=== PATIENT | male | born 1960 | race Caucasian/White ===

== ENCOUNTER 2018-12-07 14:59 | Observation (INO) | payer BC, OTHER ==
[2018-12-07 15:30] VITALS: BMI 31.9
--- NOTE | 2018-12-07 17:48 | CT ---
Date of service: 12/07/2018 PROCEDURE: CT HEAD WITHOUT CONTRAST. HISTORY: r/o ICH and fx COMPARISON: None available. TECHNIQUE: Axial computed tomography images were obtained through the head/brain without intravenous contrast. Radiation dose: Total exam DLP = 893.72 mGy-cm. This CT exam was performed using one or more of the following dose reduction techniques: Automated exposure control, adjustment of the mA and/or kV according to patient size, and/or use of iterative reconstruction technique. FINDINGS: HEMORRHAGE: Small subtle hyperdense focus in the high right frontal lobe (series 4, image 44), appearance suspicious for subarachnoid hemorrhage. Recommend 4-[address] follow-up to assess for stability/resolution. BRAIN: No mass effect or edema. The gamboa-white matter differentiation appears intact. Please note that MRI with diffusion imaging is more sensitive in the detection of acute ischemic event. VENTRICLES: No hydrocephalus. CALVARIUM: Unremarkable. PARANASAL SINUSES: Unremarkable as visualized. No significant inflammatory changes. MASTOID AIR CELLS: Unremarkable as visualized. No inflammatory changes. OTHER FINDINGS: None. IMPRESSION: Small subtle hyperdense focus in the high right frontal lobe; appearance suspicious for subarachnoid hemorrhage. Recommend 4-[address] follow-up to assess for stability/resolution. Discussed with Dr. Buck on 12/07/18 at 5:41 p.m.
--- NOTE | 2018-12-07 18:24 | CT ---
Date of service: 12/07/2018 PROCEDURE: CT Cervical Spine without contrast HISTORY: r/o fx COMPARISON: None available. TECHNIQUE: Axial computed tomography images were obtained of the cervical spine without the use of intravenous contrast. Coronal and sagittal reformatted images were created and reviewed. Radiation dose: Total exam DLP = 591.67 mGy-cm. This CT exam was performed using one or more of the following dose reduction techniques: Automated exposure control, adjustment of the mA and/or kV according to patient size, and/or use of iterative reconstruction technique. FINDINGS: VERTEBRAE: No fracture. Normal alignment. No destructive bony lesion. DISCS/SPINAL CANAL/NEURAL FORAMINA: Osteophyte posterior disc bulge noted at C5-C6 and C6-C7 associated with mild spinal and neural foraminal narrowing.. Narrowing of the intervertebral disc is space at C5-C6 and C6-C7. The PARASPINAL SOFT TISSUES: Unremarkable. OTHER FINDINGS: None. IMPRESSION: No evidence of acute fracture or subluxation. Degenerative changes. Straightening of the cervical spine which could be due to muscle spasm.
[2018-12-07 18:52] LABS: BASO # 0.05 K/mm3 (0.0-2.0); BASO % 0.6 % (0.0-3.0); EOS # 0.1 (0.0-0.7); EOS % 0.9 % (1.5-5.0); HEMOGLOBIN 15.2 g/dL (14.0-18.0); LYMPH # 2.6 (1.2-3.4); LYMPH % 29.1 % (22.0-35.0); MEAN CORPUSCULAR HEMOGLOBIN 31.5 pg (25.0-35.0); MEAN PLATELET VOLUME 10.1 fl (7.0-11.0); MONO # 0.5 (0.1-0.6); MONO % 5.8 % (1.0-6.0); RBC 4.82 10^6/uL (3.5-6.1); RED CELL DISTRIBUTION WIDTH 13.1 % (11.5-14.5)
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
[2018-12-07 19:03] LABS: INR 1.05; PARTIAL THROMBOPLASTIN TIME 31.2 Seconds (26.9-38.3); PROTHROMBIN TIME 11.6 SECONDS (9.4-12.5)
--- NOTE | 2018-12-07 19:03 | RAD ---
HISTORY: r/o infiltrate COMPARISON: None available. TECHNIQUE: Chest PA and lateral, 2 views FINDINGS: Examination limited by habitus and hypoinflation. LUNGS: No focal consolidation. Please note that chest x-ray has limited sensitivity for the detection of pulmonary masses. PLEURA: No significant pleural effusion identified. No definite pneumothorax . CARDIOVASCULAR: The cardiomediastinal silhouette appears within normal limits of size. Faint atherosclerotic calcification present. OSSEOUS STRUCTURES: Degenerative changes. VISUALIZED UPPER ABDOMEN: Elevation of the right hemidiaphragm. OTHER FINDINGS: None. IMPRESSION: No focal consolidation, significant pleural effusion, or definite pneumothorax identified.
[2018-12-07 19:06] LABS: GFR NON-AFRICAN AMERICAN > 60
[2018-12-07 19:10] LABS: ALT/SGPT 44 U/L (7-56); AST/SGOT 34 U/L (17-59); BLOOD UREA NITROGEN 14 mg/dL (7-21); CALCIUM 8.9 mg/dL (8.4-10.5)
[2018-12-07 19:41] LABS: ALB/GLOB RATIO 1.3 (1.1-1.8)
--- NOTE | 2018-12-08 09:28 | CT ---
Date of service: 12/07/2018 PROCEDURE: CT HEAD WITHOUT CONTRAST. HISTORY: repeat scan - ? subarachnoid hemorrhage COMPARISON: Earlier same day TECHNIQUE: Axial computed tomography images were obtained through the head/brain without intravenous contrast. Radiation dose: Total exam DLP = 892.64 mGy-cm. This CT exam was performed using one or more of the following dose reduction techniques: Automated exposure control, adjustment of the mA and/or kV according to patient size, and/or use of iterative reconstruction technique. FINDINGS: HEMORRHAGE: There is a small linear subcortical density in the right posterior frontal lobe. This is unchanged. This most likely represents a chronic hemorrhage or calcification. This does not have the appearance of subarachnoid blood. BRAIN: No mass effect or edema. No atrophy or chronic microvascular ischemic changes. VENTRICLES: Unremarkable. No hydrocephalus. CALVARIUM: Unremarkable. PARANASAL SINUSES: Unremarkable as visualized. No significant inflammatory changes. MASTOID AIR CELLS: Unremarkable as visualized. No inflammatory changes. OTHER FINDINGS: The report concurs with the preliminary [facility] report IMPRESSION: There is a small linear subcortical density in the right posterior frontal lobe. This is unchanged. This most likely represents a chronic hemorrhage or calcification. This does not have the appearance of subarachnoid blood. There are no other findings
--- NOTE | 2018-12-08 11:39 | CARD ---
APPROVED REPORT Date of service: 12/07/2018 EKG Measurement Heart [id number] <Conclusion> Sinus bradycardia Otherwise normal ECG
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
--- NOTE | 2018-12-08 18:20 | MRI ---
Date of service: 12/08/2018 PROCEDURE: MRI BRAIN WITHOUT CONTRAST HISTORY: CONCUSSSION COMPARISON: None available. TECHNIQUE: Multiplanar, multisequence MR images of the brain were obtained without intravenous contrast enhancement. FINDINGS: HEMORRHAGE: None DWI: No evidence of an acute or early subacute infarction. BRAIN PARENCHYMA: No mass effect or edema. No atrophy or chronic microvascular ischemic changes. VENTRICLES: Unremarkable. No hydrocephalus. CRANIUM: Unremarkable. ORBITS: Grossly unremarkable. PARANASAL SINUSES/MASTOIDS: Clear VASCULAR SYSTEM: Skull base flow voids intact. OTHER FINDINGS: None. IMPRESSION: No evidence of acute intracranial hemorrhage or acute infarction. No MRI evidence of brain edema mass effect or midline shift.
[2018-12-08 23:32] VITALS: RESP 20
[2018-12-09 06:18] VITALS: O2SAT 97
[2018-12-09 07:31] LABS: HEMOGLOBIN 15.6 g/dL (14.0-18.0); MEAN CELL VOLUME 90.9 fl (80.0-105.0); MEAN CORPUSCULAR HEMOGLOBIN 31.5 pg (25.0-35.0); MEAN CORPUSCULAR HGB CONC 34.7 g/dl (31.0-37.0); MEAN PLATELET VOLUME 10.2 fl (7.0-11.0); RBC 4.95 10^6/uL (3.5-6.1); RED CELL DISTRIBUTION WIDTH 13.3 % (11.5-14.5); WHITE BLOOD COUNT 7.5 10^3/uL (4.5-11.0)
[2018-12-09 07:58] LABS: BLOOD UREA NITROGEN 12 mg/dL (7-21); CALCIUM 8.9 mg/dL (8.4-10.5); GFR NON-AFRICAN AMERICAN > 60; HDL CHOLESTEROL 36 mg/dL (29-60); IRON 76 ug/dL (45-180)
[2018-12-09 08:08] LABS: LDL CHOLESTEROL 93 mg/dL (0-129)
[2018-12-09 08:11] LABS: % IRON SATURATION 24 % (20-55); TOTAL IRON BINDING CAPACITY 315 ug/dL (261-462)
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
[2018-12-09 12:10] LABS: FOLATE > 20.0 ng/mL
[2018-12-09 12:19] VITALS: BP 161/77; TEMP 98.1
[2018-12-09 15:10] VITALS: PULSE 96
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
== END 2018-12-09 17:00 | disposition home or self-care (01) ==
LOC: ED 14:59 → ERH 18:45 → 2RNO 21:47
PROVIDERS: ADMIT Internal Medicine; ATTEND Internal Medicine
DX: S06.339A Contusion and laceration of cerebrum, unspecified, with loss of consciousness of unspecified duration, initial encounter (principal); I10 Essential (primary) hypertension; E78.5 Hyperlipidemia, unspecified; V43.52XA Car driver injured in collision with other type car in traffic accident, initial encounter; Y92.414 Local residential or business street as the place of occurrence of the external cause
CPT/HCPCS: 36415; 70450; 70551; 71046; 72125; 80048; 80053; 80061; 82607; 82746; 83036; 83540; 83550; 84443; 85025; 85027; 85610; 85730; 86850; 86900; 93005; 93306; 99285; G0378